=== PATIENT | male | born 1965 | race Caucasian/White ===

== ENCOUNTER → 2020-06-20 | Emergency (ER) | payer OTHER ==
[~2020-06-20] VITALS: Ht 182.9 cm; Wt 67.1 kg
[~2020-06-20] MED LIST: COZAAR25 MG; NORVASC5 MG
== END | disposition home or self-care (01) ==
LOC: ER 19:25
DX: B34.9 Viral infection, unspecified (principal); R50.9 Fever, unspecified; U07.1 COVID-19